=== PATIENT | male | born 1965 | race Caucasian/White ===

== ENCOUNTER 2019-02-28 20:47 | Inpatient (IN) | payer MEDICAID ==
[~2019-02-28] VITALS: Ht 165.1 cm; Wt 83.9 kg
[2019-02-28 22:17] LABS: CLARITY URINE CLEAR (CLEAR); COLOR URINE YELLOW (YELLOW); KETONES URINE NEGATIVE (NEGATIVE); LEUKOCYTE ESTERASE URINE NEGATIVE (NEGATIVE); NITRITE URINE NEGATIVE (NEGATIVE); OCCULT BLOOD URINE TRACE (NEGATIVE); PH URINE 7.5 (4.5-8.0); PROTEIN URINE 2+ (NEGATIVE); SPECIFIC GRAVITY URINE 1.006 (1.005-1.030); UROBILINOGEN URINE 0.2 E.U./dL (0.2-1.0)
[2019-02-28 22:28] LABS: *AMPHETAMINES SCREEN URINE NEGATIVE (NEGATIVE); *BARBITURATES SCREEN URINE NEGATIVE (NEGATIVE); *BENZODIAZEPINES SCREEN URINE NEGATIVE (NEGATIVE); *COCAINE SCREEN URINE NEGATIVE (NEGATIVE)
[2019-02-28 22:29] LABS: CANNABINOID URINE SCREEN NEGATIVE (NEGATIVE); METHADONE URINE SCREEN NEGATIVE (NEGATIVE); OPIATES URINE SCREEN NEGATIVE (NEGATIVE); PHENCYCLIDINE URINE SCREEN NEGATIVE (NEGATIVE)
[2019-02-28] MEDS ORDERED: HYDRALAZINE 20MG/ML VIAL IV ONE (22:45)
[2019-02-28 22:51] LABS: EOSINOPHILS % 3.5 % (0.0-5.0); HEMATOCRIT. 49.6 % (42.0-52.0); HEMOGLOBIN. 16.4 g/dL (14.0-18.0); MEAN CORPUSCULAR HEMOGLOBIN 27.5 pg (28.0-32.0); MEAN CORPUSCULAR VOLUME 82.9 fL (80.0-94.0); MEAN PLATELET VOLUME 8.9 fl (7.4-10.4); MONOCYTES % 5.8 % (2.0-8.0); NEUTROPHILS % 72.7 % (40.0-76.0); PLATELET 309 x1000/uL (130-400); RED BLOOD CELL COUNT 5.98 mill/uL (4.7-6.1)
[2019-02-28 22:58] LABS: PROTHROMBIN TIME 10.7 sec (9.6-11.0)
[2019-02-28 23:01] LABS: CHLORIDE 106 mEq/L (98-107)
[2019-02-28 23:05] LABS: ETHANOL BLOOD < 10 mg/dL
[2019-02-28 23:08] LABS: LDL CHOLESTEROL 157 mg/dL (5-100)
[2019-02-28] MEDS ORDERED: DILTIAZEM HCL 5MG/ML 5ML VIAL IV ONE (23:45)
[2019-03-01] VITALS (11 sets, daily range): BP systolic 95–151; BP diastolic 55–108
[2019-03-01] MEDS ORDERED: LORAZEPAM 2MG/ML CPJ IV ONE
[2019-03-01] MEDS ORDERED: ONDANSETRON HCL 4MG/2ML INJ IV STA (00:09)
[2019-03-01] MEDS ORDERED: MORPHINE SULFATE 4 MG/ML CPJ (NOT FOR IM USE) IV STA (00:09)
[2019-03-01] MEDS ORDERED: POTASSIUM CHLORIDE 10MEQ TABLET SR PO ONE (00:15)
[2019-03-01] MEDS ORDERED: SODIUM CHLORIDE 0.9% 500 ML IV ONE (00:45)
[2019-03-01] MEDS ORDERED: CARV25TA47 PO (03:03)
[2019-03-01] MEDS ORDERED: FURO-151 PO (03:03)
[2019-03-01] MEDS ORDERED: BENA20TA10 PO (03:03)
[2019-03-01] MEDS ORDERED: MORPHINE SULFATE 2 MG/ML CPJ (NOT FOR IM USE) IV PRN (03:45)
[2019-03-01] MEDS: ENOXAPARIN 80MG/0.8ML SYR SUBCUT SCH ×2 (05:54→17:13)
[2019-03-01] MEDS: NITROGLYCERIN OINT 1GM/INCH UDPKT TD SCH ×4 (05:54→21:17)
[2019-03-01] MEDS ORDERED: BENAZEPRIL 10MG TABLET PO SCH (09:00)
[2019-03-01] MEDS: CARVEDILOL 12.5MG TABLET PO SCH ×2 (09:09→20:01)
[2019-03-01] MEDS: ASPIRIN 325MG EC TABLET PO SCH (09:09)
[2019-03-01] MEDS: ACETAMINOPHEN 325MG TABLET PO PRN (10:32)
[2019-03-01 11:42] LABS: BASOPHILS % 0.3 % (0.0-2.0); EOSINOPHILS % 0.7 % (0.0-5.0); HEMATOCRIT. 42.2 % (42.0-52.0); HEMOGLOBIN. 13.9 g/dL (14.0-18.0); LYMPHOCYTES % 11.8 % (20.0-50.0); MEAN CORPUSCULAR HEMOGLOBIN 27.6 pg (28.0-32.0); MEAN CORPUSCULAR VOLUME 83.5 fL (80.0-94.0); MONOCYTES % 6.4 % (2.0-8.0); NEUTROPHILS % 80.8 % (40.0-76.0); PLATELET 274 x1000/uL (130-400); RED BLOOD CELL COUNT 5.05 mill/uL (4.7-6.1); RED CELL DISTRIBUTION WIDTH 15.8 % (11.6-14.6)
[2019-03-01 13:07] LABS: CHLORIDE 109 mEq/L (98-107)
[2019-03-01 13:21] LABS: LDL CHOLESTEROL 136 mg/dL (5-100)
[2019-03-01 13:23] LABS: HDL CHOLESTEROL 46 mg/dL (40-59)
[2019-03-01] MEDS ORDERED: KETOROLAC 30MG/ML VIAL IV PRN (15:00)
[2019-03-01] MEDS ORDERED: POTASSIUM CHLORIDE 20MEQ TABLET SR PO NR (15:15)
[2019-03-01 15:48] LABS: VITAMIN B12 SERUM 676 pg/mL (211-911)
[2019-03-01 16:20] LABS: FOLIC ACID (FOLATE) SERUM > 20.00 ng/mL (>5.38)
[2019-03-01 17:56] LABS: CHLORIDE 108 mEq/L (98-107)
[2019-03-01 18:00] LABS: ETHANOL BLOOD < 10 mg/dL
[2019-03-01 18:03] LABS: LDL CHOLESTEROL 130 mg/dL (5-100)
[2019-03-01 18:04] LABS: HDL CHOLESTEROL 46 mg/dL (40-59)
[2019-03-01 18:05] LABS: T4 FREE 1.06 ng/dL (0.76-1.46)
[2019-03-01 18:08] LABS: CREATINE KINASE 131 IU/L (39-308)
[2019-03-01 18:11] LABS: CREATINE KINASE MB FRACTION 9.3 ng/mL (0.5-3.6)
[2019-03-02] VITALS (11 sets, daily range): BP systolic 102–136; BP diastolic 65–91
[2019-03-02] MEDS: ENOXAPARIN 80MG/0.8ML SYR SUBCUT SCH ×2 (05:26→17:16)
[2019-03-02] MEDS: NITROGLYCERIN OINT 1GM/INCH UDPKT TD SCH ×2 (05:36→06:39)
[2019-03-02 06:22] LABS: EOSINOPHILS % 3.6 % (0.0-5.0); HEMATOCRIT. 43.3 % (42.0-52.0); HEMOGLOBIN. 14.1 g/dL (14.0-18.0); LYMPHOCYTES % 22.7 % (20.0-50.0); MEAN CORPUSCULAR HEMOGLOBIN 27.4 pg (28.0-32.0); MEAN CORPUSCULAR VOLUME 84.4 fL (80.0-94.0); MEAN PLATELET VOLUME 9.6 fl (7.4-10.4); MONOCYTES % 9.2 % (2.0-8.0); NEUTROPHILS % 63.5 % (40.0-76.0); PLATELET 247 x1000/uL (130-400); RED BLOOD CELL COUNT 5.13 mill/uL (4.7-6.1); RED CELL DISTRIBUTION WIDTH 15.9 % (11.6-14.6)
[2019-03-02 07:29] LABS: CHLORIDE 109 mEq/L (98-107)
[2019-03-02 07:48] LABS: CREATINE KINASE 73 IU/L (39-308); LDL CHOLESTEROL 121 mg/dL (5-100)
[2019-03-02] MEDS: ASPIRIN 325MG EC TABLET PO SCH (07:49)
[2019-03-02] MEDS: CARVEDILOL 12.5MG TABLET PO SCH ×2 (07:49→20:58)
[2019-03-02 07:50] LABS: CREATINE KINASE MB FRACTION 3.3 ng/mL (0.5-3.6)
[2019-03-02 07:51] LABS: HDL CHOLESTEROL 44 mg/dL (40-59)
[2019-03-02] MEDS: ACETAMINOPHEN 325MG TABLET PO PRN (10:34)
[2019-03-02] MEDS: ATORVASTATIN CALCIUM 20MG TABLET PO SCH (20:58)
[2019-03-03] VITALS (11 sets, daily range): BP systolic 113–170; BP diastolic 77–124
[2019-03-03 07:03] LABS: CHLORIDE 108 mEq/L (98-107)
[2019-03-03 07:07] LABS: BASOPHILS % 0.5 % (0.0-2.0); EOSINOPHILS % 4.6 % (0.0-5.0); HEMATOCRIT. 39.6 % (42.0-52.0); HEMOGLOBIN. 13.2 g/dL (14.0-18.0); LYMPHOCYTES % 21.4 % (20.0-50.0); MEAN CORPUSCULAR HEMOGLOBIN 27.9 pg (28.0-32.0); MEAN CORPUSCULAR VOLUME 83.3 fL (80.0-94.0); MEAN PLATELET VOLUME 9.6 fl (7.4-10.4); MONOCYTES % 8.7 % (2.0-8.0); NEUTROPHILS % 64.8 % (40.0-76.0); PLATELET 230 x1000/uL (130-400); RED BLOOD CELL COUNT 4.75 mill/uL (4.7-6.1); RED CELL DISTRIBUTION WIDTH 15.7 % (11.6-14.6)
[2019-03-03] MEDS: ASPIRIN 81MG TABLET PO SCH (09:00)
[2019-03-03] MEDS: CARVEDILOL 12.5MG TABLET PO SCH ×2 (09:48→20:56)
[2019-03-03] MEDS: ENOXAPARIN 80MG/0.8ML SYR SUBCUT SCH ×2 (16:29→23:42)
[2019-03-03] MEDS: CLONIDINE 0.1MG TABLET PO PRN (19:03)
[2019-03-03] MEDS: ATORVASTATIN CALCIUM 20MG TABLET PO SCH (20:55)
[2019-03-04] VITALS (7 sets, daily range): BP systolic 113–141; BP diastolic 82–101
[2019-03-04] MEDS: CLONIDINE 0.1MG TABLET PO PRN (06:25)
[2019-03-04 06:38] LABS: BASOPHILS % 0.8 % (0.0-2.0); EOSINOPHILS % 4.2 % (0.0-5.0); HEMOGLOBIN. 13.4 g/dL (14.0-18.0); MEAN CORPUSCULAR HEMOGLOBIN 27.7 pg (28.0-32.0); MEAN CORPUSCULAR VOLUME 84.3 fL (80.0-94.0); MEAN PLATELET VOLUME 9.2 fl (7.4-10.4); MONOCYTES % 9.8 % (2.0-8.0); NEUTROPHILS % 59.2 % (40.0-76.0); PLATELET 234 x1000/uL (130-400); RED BLOOD CELL COUNT 4.86 mill/uL (4.7-6.1); RED CELL DISTRIBUTION WIDTH 15.7 % (11.6-14.6)
[2019-03-04 06:41] LABS: CHLORIDE 109 mEq/L (98-107)
[2019-03-04] MEDS: ENOXAPARIN 80MG/0.8ML SYR SUBCUT SCH (08:34)
[2019-03-04] MEDS: ASPIRIN 81MG TABLET PO SCH (08:34)
[2019-03-04] MEDS: CARVEDILOL 12.5MG TABLET PO SCH (08:35)
[2019-03-04] MEDS ORDERED: APIXABAN 5 MG TABLET PO SCH (17:00)
[2019-03-04] MEDS ORDERED: ATORVASTATIN CALCIUM 40MG TABLET PO SCH (21:00)
== END 2019-03-04 12:12 | disposition home or self-care (01) | DRG 45 ==
LOC: ER 20:47 → EDBEDREQ 22:59 → EDBEDREQTM 22:59 → EDBEDREQSVC 22:59 → ENRESERV 23:27 → EDBEDREQDT 03-01 00:42 → EDBEDREQSVC 03-01 00:42 → EDBEDREQTM 03-01 00:42 → 3WST 03-01 00:56 → ENRESERV 03-01 00:56
PROVIDERS: ADMIT Internal Medicine; ATTEND Internal Medicine
DX: I63.9 Cerebral infarction, unspecified (principal); I21.4 Non-ST elevation (NSTEMI) myocardial infarction; I49.5 Sick sinus syndrome; I11.0 Hypertensive heart disease with heart failure; E87.6 Hypokalemia; I48.2 Chronic atrial fibrillation; Z95.0 Presence of cardiac pacemaker; E78.00 Pure hypercholesterolemia, unspecified; E78.5 Hyperlipidemia, unspecified; I50.42 Chronic combined systolic (congestive) and diastolic (congestive) heart failure; R74.0 Nonspecific elevation of levels of transaminase and lactic acid dehydrogenase [LDH]; Z79.01 Long term (current) use of anticoagulants; Z86.73 Personal history of transient ischemic attack (TIA), and cerebral infarction without residual deficits; Z90.49 Acquired absence of other specified parts of digestive tract
CPT/HCPCS: 36415; 70544; 70553; 71045; 72141; 80048; 80061; 80305; 80320; 82550; 82553; 82607; 82746; 82962; 83036; 83721; 83735; 83880; 84439; 84443; 84481; 84484; 85379; 93005; 93306; 93880; 96374; 97163; 97165; 99285; J0360; J1650; J1885; J2060; J2270; J2405; J3490; J7040; G0480